=== PATIENT | female | born 1960 | race Caucasian/White ===

== ENCOUNTER 2021-01-25 04:02 | Inpatient (IN) | payer MEDICAID, OTHER ==
[~2021-01-25] VITALS: Ht 157.5 cm; Wt 122.9 kg
[~2021-01-25 04:02] MED LIST: AMIT75TA PO; AMOX-291 PO; CYCL10TA2 PO; DICL75TA3 PO; FLUO40CA9 PO; FURO20TA3 PO; GABA300C10 PO; LISI-167 PO; OXYC5CAP2 PO; POTA20TA91 PO
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
[2021-01-25] MEDS ORDERED: SODIUM CHLORIDE 0.9% 1,000ML IVBOLUS ONE (04:30)
[2021-01-25] MEDS ORDERED: VANCOMYCIN 2,500 MG in SODIUM CHLORIDE 0.9% 500 ML IV ONE (04:30)
[2021-01-25] MEDS ORDERED: VANCOMYCIN PER PHARMACY MC ONE (04:30)
[2021-01-25] MEDS ORDERED: PIPERACILLIN/TAZO 3.375 GM in DEXTROSE 5% 50 ML IVPB ONE (04:30)
[2021-01-25 04:55] LABS: MICROSCOPIC INDICATED
--- NOTE | 2021-01-25 05:10 | NUR ---
PT EASILY AROUSABLE NOW. [id number].
--- NOTE | 2021-01-25 05:12 | NUR ---
DELAY IN ABX ADM DUE TO FAILED ATTEMPTS TO GET BLOOD CULTURES X 2. PT IS A HARD DRAW Addendum: 01/25/21 at 0550 by COURTNEY [email or web address]. TIME, PLACE, NAME
--- NOTE | 2021-01-25 05:51 | NUR ---
PT MAKES RANDOM STATEMENTS LIKE "HAVE YOU SEEN MY CATS?" OR "DO YOU LIKE FAT CATS?"
[2021-01-25 05:52] LABS: ALANINE AMINOTRANSFERASE 61 U/L (12-78); ALBUMIN 1.7 g/dL (3.4-5.0); ANION GAP 4 mmol/L (5-15); CALCIUM 8.2 mg/dL (8.5-10.1); CHLORIDE 108 mmol/L (98-107); CREATININE 1.23 mg/dL (0.55-1.02)
[2021-01-25 05:56] LABS: ALKALINE PHOSPHATASE 167 U/L (45-117); TOTAL PROTEIN 5.7 g/dL (6.4-8.2); TROPONIN I < 0.015 ng/mL (0.000-0.045)
[2021-01-25] MEDS ORDERED: SODIUM CHLORIDE 0.9% 1,000 ML IV ONE (07:00)
--- NOTE | 2021-01-25 07:05 | NUR ---
RECEIVED BEDSIDE REPORT AND CARE FROM MEÑO GLEZ. CARE ASSUMED AT THIS TIME. PT CONFUSED, UNABLE TO TELL THIS RN HER NAME, , EVENTS OR ANY INFORMATION. PT ASKS TO BE REPOSITIONED, REPOSITION TO PT COMFORT. ABLE TO MOVE OWN EXTREMITIES. DENIES ANY PAIN AND NEED TO USE RESTROOM. PT HYPOTENSIVE, ERP AWARE, NO NEW ORDERS RECEIVED, IVF INFUSING PER ORDER. IV ANTIBIOTICS CONTINUE INFUSING PER MD ORDER ON IV PUMP. ALL MONITORS IN PLACE. SR ON MONITOR. AWAITING ROOM ASSIGNMENT ON FLOOR. CALL LIGHT IN REACH. FALL PRECAUTIONS IN PLACE. SIDE RAILS UPX2.
--- NOTE | 2021-01-25 07:29 | NUR ---
ADMIT PROVIDER AT BEDSIDE FOR EVALUATION
[2021-01-25 07:36] LABS: BASOPHILS % (AUTO) 1 % (0-1); EOSINOPHILS % (AUTO) 1 % (1-7); LYMPHOCYTES % (AUTO) 13 % (22-44); MEAN CORPUSCULAR HEMOGLOBIN 31.9 pg (27.0-34.8); MEAN PLATELET VOLUME 7.6 fL (7.4-10.4); MONOCYTES % (AUTO) 17 % (2-9); NEUTROPHILS % (AUTO) 69 % (42-75); PLATELET COUNT 151 x10^3/uL (130-400); RED BLOOD COUNT 3.47 x10^6/uL (3.82-5.3); RED CELL DISTRIBUTION WIDTH 15.3 % (9.6-15.2)
--- NOTE | 2021-01-25 07:43 | NUR ---
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 ADMIT PROVIDER AT BEDSIDE. REPOSITIONED FOR COMFORT. VSS. AWAITING ROOM ON FLOOR. CALL LIGHT IN REACH. FALL PRECAUTIONS IN PLACE
--- NOTE | 2021-01-25 08:04 | NUR ---
Bed 405-1 received. Attempted to call reportx1 at this time to floor RN.
--- NOTE | 2021-01-25 08:09 | NUR ---
VERBAL REPORT TO SORAIDA GLEZ AT THIS TIME. PT READY FOR TRANSPORT TO FLOOR.
[2021-01-25] MEDS ORDERED: ONDANSETRON 2MG/ML, 2ML IVPush PRN (08:30)
[2021-01-25] MEDS ORDERED: ENALAPRILAT 1.25 MG/ML, 2ML IVPush PRN (08:30)
[2021-01-25] MEDS: SODIUM CHLORIDE 0.9% 1,000 ML IV SCH ×3 (08:30→18:00)
[2021-01-25] MEDS ORDERED: POLYETHYLENE GLYCOL 17 GM PACKET PO PRN (08:30)
[2021-01-25] MEDS ORDERED: FUROSEMIDE 20 MG TABLET PO SCH (09:00)
[2021-01-25 09:38] VITALS: BP 97/60
[2021-01-25] MEDS: HEPARIN 5,000 UNITS/ML, 1ML SQ SCH ×2 (09:45→16:55)
[2021-01-25 12:43] VITALS: BP 95/58
[2021-01-25] MEDS: ACETAMINOPHEN 325 MG TABLET PO PRN (16:55)
[2021-01-25] MEDS ORDERED: INSULIN LISPRO 100 UNITS/ML, PEN SQ-INSULIN SCH (18:00)
[2021-01-25] MEDS ORDERED: TRAZODONE 100MG TABLET PO PRN (18:00)
[2021-01-25 18:59] VITALS: BP 105/64
[2021-01-25] MEDS ORDERED: AMITRIPTYLINE 75 MG TABLET PO SCH (21:00)
[2021-01-25] MEDS: INSULIN LISPRO 100 UNITS/ML, PEN SQ-INSULIN SCH (21:00)
[2021-01-25] MEDS: INSULIN GLARGINE 100 UNITS/ML, PEN SQ-INSULIN SCH (23:00)
[2021-01-26 00:30] VITALS: BP 112/67
[2021-01-26] MEDS: HEPARIN 5,000 UNITS/ML, 1ML SQ SCH ×4 (00:57→23:47)
[2021-01-26 05:54] LABS: BASOPHILS % (AUTO) 1 % (0-1); EOSINOPHILS % (AUTO) 1 % (1-7); LYMPHOCYTES % (AUTO) 11 % (22-44); MEAN CORPUSCULAR HEMOGLOBIN 32.3 pg (27.0-34.8); MEAN CORPUSCULAR HGB CONC 33.7 g/dL (32.4-35.8); MEAN PLATELET VOLUME 8.4 fL (7.4-10.4); MONOCYTES % (AUTO) 14 % (2-9); NEUTROPHILS % (AUTO) 74 % (42-75); PLATELET COUNT 192 x10^3/uL (130-400); RED BLOOD COUNT 3.69 x10^6/uL (3.82-5.3); RED CELL DISTRIBUTION WIDTH 15.3 % (9.6-15.2)
[2021-01-26 06:07] LABS: ALBUMIN 1.9 g/dL (3.4-5.0); ANION GAP 5 mmol/L (5-15); CALCIUM 8.6 mg/dL (8.5-10.1); CHLORIDE 106 mmol/L (98-107)
[2021-01-26 06:11] LABS: ALANINE AMINOTRANSFERASE 65 U/L (12-78); ALKALINE PHOSPHATASE 186 U/L (45-117); BILIRUBIN,TOTAL 1.1 mg/dL (0.2-1.0); CREATININE 0.75 mg/dL (0.55-1.02); TOTAL PROTEIN 6.9 g/dL (6.4-8.2)
[2021-01-26] MEDS: INSULIN LISPRO 100 UNITS/ML, PEN SQ-INSULIN SCH ×4 (07:00→20:23)
[2021-01-26 07:35] VITALS: BP 104/65
[2021-01-26] MEDS: CEFTRIAXONE 2 GM in DEXTROSE 5% 50 ML IVPB SCH (09:12)
[2021-01-26] MEDS: SODIUM CHLORIDE 0.9% 1,000 ML IV SCH (11:25)
[2021-01-26 12:07] VITALS: BP 98/63
[2021-01-26] MEDS: ACETAMINOPHEN 325 MG TABLET PO PRN (12:44)
[2021-01-26] MEDS: ASCORBIC ACID 500 MG TABLET PO SCH (14:39)
[2021-01-26 19:13] VITALS: BP 139/90
[2021-01-26] MEDS: INSULIN GLARGINE 100 UNITS/ML, PEN SQ-INSULIN SCH (20:24)
[2021-01-27 01:20] VITALS: BP 111/59
[2021-01-27] MEDS: INSULIN LISPRO 100 UNITS/ML, PEN SQ-INSULIN SCH ×4 (07:00→20:23)
[2021-01-27 08:38] VITALS: BP 115/74
[2021-01-27] MEDS: HEPARIN 5,000 UNITS/ML, 1ML SQ SCH ×2 (09:52→17:15)
[2021-01-27] MEDS: CEFTRIAXONE 2 GM in DEXTROSE 5% 50 ML IVPB SCH (09:53)
[2021-01-27] MEDS: ASCORBIC ACID 500 MG TABLET PO SCH (09:53)
[2021-01-27 13:31] VITALS: BP 130/87
[2021-01-27 19:34] VITALS: BP 148/79
[2021-01-27] MEDS: INSULIN GLARGINE 100 UNITS/ML, PEN SQ-INSULIN SCH (20:22)
[2021-01-28] MEDS: HEPARIN 5,000 UNITS/ML, 1ML SQ SCH ×3 (00:30→17:13)
[2021-01-28 01:44] VITALS: BP 141/72
[2021-01-28 06:08] LABS: BASOPHILS % (AUTO) 1 % (0-1); EOSINOPHILS % (AUTO) 2 % (1-7); LYMPHOCYTES % (AUTO) 17 % (22-44); MEAN CORPUSCULAR HEMOGLOBIN 31.8 pg (27.0-34.8); MEAN CORPUSCULAR HGB CONC 33.2 g/dL (32.4-35.8); MEAN PLATELET VOLUME 7.7 fL (7.4-10.4); MONOCYTES % (AUTO) 17 % (2-9); NEUTROPHILS % (AUTO) 64 % (42-75); PLATELET COUNT 228 x10^3/uL (130-400); RED BLOOD COUNT 3.74 x10^6/uL (3.82-5.3); RED CELL DISTRIBUTION WIDTH 15.5 % (9.6-15.2)
[2021-01-28 06:23] LABS: ALBUMIN 2.2 g/dL (3.4-5.0); ANION GAP 5 mmol/L (5-15); CALCIUM 8.8 mg/dL (8.5-10.1); CHLORIDE 111 mmol/L (98-107)
[2021-01-28 06:29] LABS: ALANINE AMINOTRANSFERASE 60 U/L (12-78); ALKALINE PHOSPHATASE 194 U/L (45-117); BILIRUBIN,TOTAL 1.2 mg/dL (0.2-1.0); CREATININE 0.61 mg/dL (0.55-1.02); TOTAL PROTEIN 6.7 g/dL (6.4-8.2)
[2021-01-28 08:18] VITALS: BP 157/100
[2021-01-28] MEDS: INSULIN LISPRO 100 UNITS/ML, PEN SQ-INSULIN SCH ×4 (08:25→20:48)
[2021-01-28] MEDS: ASCORBIC ACID 500 MG TABLET PO SCH (09:01)
[2021-01-28] MEDS: CEFTRIAXONE 2 GM in DEXTROSE 5% 50 ML IVPB SCH (09:56)
[2021-01-28 12:40] VITALS: BP 125/79
[2021-01-28 19:18] VITALS: BP 137/84
[2021-01-28] MEDS: PIPERACILLIN/TAZO 4.5 GM in DEXTROSE 5% 100 ML IVPB SCH (21:01)
[2021-01-28] MEDS: ACETAMINOPHEN 325 MG TABLET PO PRN (21:01)
[2021-01-28] MEDS: INSULIN GLARGINE 100 UNITS/ML, PEN SQ-INSULIN SCH (21:02)
[2021-01-29] MEDS: HEPARIN 5,000 UNITS/ML, 1ML SQ SCH ×2 (00:22→07:54)
[2021-01-29 01:25] VITALS: BP 125/78
[2021-01-29] MEDS: PIPERACILLIN/TAZO 4.5 GM in DEXTROSE 5% 100 ML IVPB SCH ×2 (02:13→07:54)
[2021-01-29] MEDS: INSULIN LISPRO 100 UNITS/ML, PEN SQ-INSULIN SCH ×2 (07:00→11:00)
[2021-01-29 07:21] VITALS: BP 126/81
[2021-01-29] MEDS: ASCORBIC ACID 500 MG TABLET PO SCH (09:00)
[2021-01-29 13:10] VITALS: BP 117/77
[2021-01-29] MEDS ORDERED: LEVO500T8 PO (15:37)
== END 2021-01-29 17:12 | disposition home or self-care (01) | DRG 871 ==
LOC: ED 05:58 → EDIP 06:52 → 4WST 08:44
PROVIDERS: ADMIT Internal Medicine; ATTEND Internal Medicine
PROC: 0T9B70Z Drainage of Bladder with Drainage Device, Via Natural or Artificial Opening (ICD-10-PCS; principal; 2021-01-25)
DX: A41.51 Sepsis due to Escherichia coli [E. coli] (principal); J96.01 Acute respiratory failure with hypoxia; N17.9 Acute kidney failure, unspecified; G93.49 Other encephalopathy; Z68.42 Body mass index [BMI] 45.0-49.9, adult; Z66 Do not resuscitate; I10 Essential (primary) hypertension; B95.2 Enterococcus as the cause of diseases classified elsewhere; B96.20 Unspecified Escherichia coli [E. coli] as the cause of diseases classified elsewhere; K74.60 Unspecified cirrhosis of liver; N30.90 Cystitis, unspecified without hematuria; B18.2 Chronic viral hepatitis C; E11.8 Type 2 diabetes mellitus with unspecified complications; E66.01 Morbid (severe) obesity due to excess calories; R13.10 Dysphagia, unspecified; Z86.19 Personal history of other infectious and parasitic diseases; Z87.891 Personal history of nicotine dependence; Z87.442 Personal history of urinary calculi; Z79.899 Other long term (current) drug therapy
CPT/HCPCS: 36415; 70450; 71045; 80053; 81001; 82140; 82962; 83605; 83735; 84100; 84145; 84443; 84484; 85025; 87040; 87077; 87086; 87186; 93005; 96365; 99291; G0378; J0696; J1644; J2543; J3370; J1815; J7030; J7040